=== PATIENT | female | born 1960 | race Asian ===

== ENCOUNTER 2017-03-12 15:21 | Outpatient (CLI) | payer MEDICARE, MEDICAID ==
[2017-03-12 19:32] LABS: BASOPHILS % (AUTO) 0.9 %; EOSINOPHILS # (AUTO) 0.1 10^3/uL (0.0-0.7); EOSINOPHILS % (AUTO) 1.2 %; HCT - HEMATOCRIT 43.6 % (37.0-47.0); HGB - HEMOGLOBIN 14.8 g/dL (12.0-16.0); LYMPHOCYTES # (AUTO) 1.4 10^3/uL (1.5-3.5); LYMPHOCYTES % (AUTO) 30.9 %; MEAN CORPUSCULAR HEMOGLOBIN 32.3 pg (27.0-31.0); MEAN CORPUSCULAR HGB CONC 33.9 g/dL (32.0-36.0); MEAN CORPUSCULAR VOLUME 95.3 fL (81.0-99.0); MEAN PLATELET VOLUME 8.2 fL (7.9-10.8); MONOCYTES # (AUTO) 0.2 10^3/uL (0.0-1.0); MONOCYTES % (AUTO) 4.8 %; NEUTROPHILS # (AUTO) 2.7 10^3/uL (1.5-6.6); NEUTROPHILS % (AUTO) 62.2 %; RED BLOOD COUNT 4.57 10^6/uL (4.20-5.40); RED CELL DISTRIBUTION WIDTH 12.8 % (12.0-15.0); UNCORRECTED WHITE BLOOD COUNT 4.4 x10^3/uL; WHITE BLOOD COUNT 4.4 x10^3/uL (4.8-10.8)
[2017-03-12 19:55] LABS: ALBUMIN/GLOBULIN RATIO 2.1 (1.0-2.2); BILIRUBIN,TOTAL 0.9 mg/dL (0.2-1.0); CALCIUM 9.6 mg/dL (8.5-10.3); CREATININE 0.6 mg/dL (0.4-1.0); POTASSIUM 3.8 mmol/L (3.5-5.0); TOTAL PROTEIN 7.4 g/dL (6.7-8.2)
== END 2017-03-12 15:22 | disposition home or self-care (01) ==
LOC: LAB.N 15:21
PROVIDERS: ATTEND Nurse Practitioner Gerontology
DX: I10 Essential (primary) hypertension (principal); E03.9 Hypothyroidism, unspecified
CPT/HCPCS: 36415; 80053; 84443; 85025

== ENCOUNTER 2017-03-16 16:58 | Outpatient (CLI) | payer MEDICARE, MEDICAID | END 2017-03-16 16:59 | disposition critical access hospital (66) | LOC: EMS 16:58 | PROVIDERS: ATTEND Surgery | DX: R73.09 Other abnormal glucose (principal); R53.1 Weakness; R53.83 Other fatigue | CPT/HCPCS: A0425; A0427 ==

== ENCOUNTER 2017-03-16 17:22 | Emergency (ER) | payer MEDICARE, MEDICAID ==
[2017-03-16] MEDS ORDERED: SODIUM CHLORIDE 0.9% 1,000 ML IV ONE (17:29)
[2017-03-16] MEDS ORDERED: metFORMIN 500 MG TABLET PO STA (17:29)
[2017-03-16] MEDS ORDERED: LEVOTHYROXINE 100 MCG TABLET PO STA (17:29)
[2017-03-16] MEDS ORDERED: INSULIN REGULAR HUMAN 100 UNIT/1 ML 10 ML MDV IVP STA (17:29)
--- NOTE | 2017-03-16 17:32 | ED Physician Documentation ---
History of Present Illness - Stated complaint Stated Complaint: SLURRED SPEECH - Chief complaint Chief Complaint: Neuro - History obtained from History obtained from: Patient - History of Present Illness Timing: Other (56-year-old woman with a history of pretty significant psychiatric issues has been medication noncompliant. She had pre-clinic labs done 4 days ago which were notable for a very high TSH and a blood sugar of 418. She was seen in the office today and there was a concern for slurred speech which neither the patient's nor the paramedics in route noted. She has had recent weight gain, but denies psychosis.) Review of Systems Constitutional: denies: Fever, Chills Cardiac: denies: Chest pain / pressure, Palpitations Respiratory: denies: Dyspnea, Cough GI: denies: Abdominal Pain, Nausea, Vomiting : reports: Frequency PD PAST MEDICAL HISTORY - Past Medical History Endocrine/Autoimmune: HyPERthyroidism, HyPOthyroidism Psych: Bipolar disorder - Past Surgical History Past Surgical History: Yes - Present Medications Home Medications: Ambulatory Orders Medication Instructions Recorded Confirmed Metformin HCl 500 mg PO BID #60 tablet 03/16/17 - Allergies Allergies/Adverse Reactions: Allergies Allergy/AdvReac Type Severity Reaction Status Date / Time No Known Drug Allergies Allergy Verified 03/16/17 17:29 - Social History Does the pt smoke?: Yes Smoking Status: Unknown if ever smoked Does the pt drink ETOH?: No Does the pt have substance abuse?: Yes - Immunizations Immunizations are current?: No - POLST Patient has POLST: No PD ED PE NORMAL - Vitals Vital signs reviewed: Yes - General General: Alert and oriented X 3, No acute distress - HEENT HEENT: PERRL, EOMI - Cardiac Cardiac: RRR, No murmur - Respiratory Respiratory: No respiratory distress, Clear bilaterally - Abdomen Abdomen: Non tender - Neuro Neuro: Alert and oriented X 3, supervisor marble 2-12 intact, No motor deficit, No sensory deficit, Normal speech (no slurring) - Psych Psych: Normal mood, Normal affect Results - Vitals Vitals: Vital Signs - 24 hr 03/16/17 03/16/17 17:25 19:23 Temperature 37.1 C 36.6 C Heart Rate 84 74 Respiratory 18 16 Rate Blood Pressure 183/95 H 134/90 H O2 Saturation 96 99 Oxygen O2 Source Room air PD MEDICAL DECISION MAKING - ED course Complexity details: reviewed old records (Clinic labs from a few days ago- no DKA) ED course: I suspect she had transient slurred speech due to hyperglycemia, there is no evidence of stroke or slurred speech at this juncture. She does have significant hypothyroidism and a new diagnosis of diabetes. She is administered IV fluids, metformin, and her home dose of levothyroxine. After some IV fluids and insulin and a first dose of metformin her blood sugar is 337 and she is discharged on metformin advised to take her Synthroid and discuss her medications ongoing with her physician. Departure - Departure Disposition: Home, Self Care Clinical Impression: New onset type 2 diabetes mellitus Hypothyroidism Qualifiers: Hypothyroidism type: unspecified Qualified Code(s): E03.9 - Hypothyroidism, unspecified Condition: Good Record reviewed to determine appropriate education?: Yes Instructions: ED Hypothyroidism, Diabetes Type 2 Oral Meds, Diabetes Type 2 Coping Prescriptions: Metformin HCl 500 mg PO BID #60 tablet Comments: There is no evidence of stroke, but it does seem that she likely have diabetes, I am starting you on an oral medication for this. Follow-up with your doctor in the next 2 days for blood sugar recheck. Also I advised that she take your other medications including and especially your thyroid medicine. Your blood pressure was elevated today on check into the emergency department. This does not mean that you have hypertension, it is a common phenomenon to come to the emergency department and have elevated blood pressure. I recommend that she see her primary care physician within the week to have it rechecked when you are feeling better. Discharge Date/Time: 03/16/17 19:31
[2017-03-16] MEDS ORDERED: INSULIN REGULAR HUMAN 100 UNIT/1 ML 10 ML MDV ONE (17:55)
[2017-03-16] MEDS ORDERED: metFORMIN 500 MG TABLET ONE (17:56)
[2017-03-16] MEDS ORDERED: LEVOTHYROXINE 100 MCG TABLET ONE (17:56)
[2017-03-16 19:24] VITALS: BP 134/90
== END 2017-03-16 19:31 | disposition home or self-care (01) ==
LOC: EDUNIT# → ED 17:22
DX: E11.65 Type 2 diabetes mellitus with hyperglycemia (principal); Z79.84 Long term (current) use of oral hypoglycemic drugs; E03.9 Hypothyroidism, unspecified; R03.0 Elevated blood-pressure reading, without diagnosis of hypertension; F31.9 Bipolar disorder, unspecified; Z91.14 Patient's other noncompliance with medication regimen
CPT/HCPCS: 99283; 99284; A9270; J1815

== ENCOUNTER 2017-05-01 15:40 | Outpatient (CLI) | payer MEDICARE, MEDICAID ==
[2017-05-01 20:08] LABS: THYROID STIMULATING HORMONE 0.17 uIU/mL (0.34-5.60)
== END 2017-05-01 15:41 | disposition home or self-care (01) ==
LOC: LAB.N 15:40
PROVIDERS: ATTEND Nurse Practitioner Gerontology
DX: E03.9 Hypothyroidism, unspecified (principal)
CPT/HCPCS: 36415; 84439; 84443

== ENCOUNTER 2017-06-25 09:02 | Outpatient (CLI) | payer MEDICAID, MEDICARE ==
[2017-06-25] MEDS ORDERED: GADOBUTROL 7.5 MMOL/7.5 ML VIAL ONE (09:57)
[2017-06-25 10:56] LABS: CREATININE 0.6 mg/dL (0.4-1.0)
[2017-06-25] MEDS ORDERED: GADOBUTROL 7.5 MMOL/7.5 ML VIAL IVP ONE (11:50)
--- NOTE | 2017-06-25 12:40 | MRI Preliminary Report ---
Exam: MRI ORBITS W/WO IMPRESSION: 1. Enlargement of the left inferior rectus muscle with diffuse signal abnormality and enhancement. Mi ld stranding is present in the surrounding orbital fat. 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 Lymphoma or other malignancy is less likely but cannot be excluded. 2. Mild asymmetric enlargement of left lacrimal gland relative to the right. Findings are indetermina te, but could also represent orbital pseudotumor. [facility] SITE ID: [id number]
--- NOTE | 2017-06-25 12:42 | MRI Report ---
EXAM: MRI BRAIN AND ORBITS WITHOUT AND WITH CONTRAST EXAM DATE: 06/25/2017 12:15 PM. CLINICAL HISTORY: 56-year-old woman with left eye double vision. Concern for cranial nerve palsy. COMPARISON: None. TECHNIQUE: Multiplanar, multisequence T1-weighted and fluid-sensitive MR sequences of the brain were performed. Sequences optimized for routine evaluation. Other: None. IV Contrast: 6.5 cc Gadavist. FINDINGS: Parenchyma: No evidence of acute infarct on diffusion weighted sequence. The parenchyma demonstrates [id number] burden of nonspecific flatter hyperintensities in the deep cerebral white matter, mo st consistent with sequelae of chronic small vessel ischemic disease and a common finding in this age group. No evidence of prior hemorrhage on susceptibility weighted sequence. No abnormal enhancement. Pituitary: Unremarkable. Ventricles and Extra-axial Spaces: Ventricles are symmetric and normal in size for age. Extra-axial s paces are unremarkable. No abnormal enhancement. Orbits, Optic nerves, and Cavernous Sinuses: Globes are intact and normal in shape. The optic nerves are symmetric and normal in caliber. No signal abnormality or abnormal enhancement. The left inferior rectus muscle is enlarged and demonstrates increased T2 signal and diffuse enhancement. There is mil d stranding in the surrounding left orbital fat. The remaining extraocular muscles are symmetric and normal in size. There is mild asymmetric enlargement of the left lacrimal gland relative to the right , indeterminate. Cavernous sinuses are symmetric and normal in size without evidence of mass lesion. Sinuses: Paranasal sinuses and mastoid air cells are clear. Major Vascular Flow Voids: Intact. Dural Venous Sinuses and Major Central Veins: Patent on post-contrast images. IMPRESSION: 1.Enlargement of the left inferior rectus muscle with diffuse signal abnormality and enhancement. Mil d stranding is present in the surrounding orbital fat. 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 Lymphoma or other malignancy is less likely but cannot be excluded. 2. Mild asymmetric enlargement of left lacrimal gland relative to the right. Findings are indetermina te, but could also represent orbital pseudotumor. [facility] Referring Provider Line: [phone] SITE ID: [id number]
== END 2017-06-25 09:03 | disposition home or self-care (01) ==
LOC: DI 09:02
PROVIDERS: ATTEND Ophthalmology
DX: R93.0 Abnormal findings on diagnostic imaging of skull and head, not elsewhere classified (principal); H57.00 Unspecified anomaly of pupillary function
CPT/HCPCS: 36415; 70543; 82565; A9585

== ENCOUNTER 2017-12-29 13:03 | Outpatient (CLI) | payer MEDICAID, MEDICARE | END 2017-12-29 13:04 | disposition critical access hospital (66) | LOC: EMS 13:03 | PROVIDERS: ATTEND Surgery | DX: R41.0 Disorientation, unspecified (principal); R46.89 Other symptoms and signs involving appearance and behavior | CPT/HCPCS: A0425; A0429 ==

== ENCOUNTER 2017-12-29 13:27 | Emergency (ER) | payer MEDICAID, MEDICARE ==
[2017-12-29 14:06] VITALS: BP 133/79
[2017-12-29] MEDS: OLANZapine ODT 5 MG TABLET TL ONE (14:59)
[2017-12-29 15:01] LABS: BASOPHILS % (AUTO) 0.5 %; EOSINOPHILS # (AUTO) 0.1 10^3/uL (0.0-0.7); EOSINOPHILS % (AUTO) 0.7 %; HGB - HEMOGLOBIN 13.2 g/dL (12.0-16.0); LYMPHOCYTES # (AUTO) 1.2 10^3/uL (1.5-3.5); LYMPHOCYTES % (AUTO) 15.9 %; MEAN CORPUSCULAR HEMOGLOBIN 31.1 pg (27.0-31.0); MEAN CORPUSCULAR HGB CONC 33.6 g/dL (32.0-36.0); MEAN CORPUSCULAR VOLUME 92.6 fL (81.0-99.0); MONOCYTES # (AUTO) 0.4 10^3/uL (0.0-1.0); MONOCYTES % (AUTO) 5.5 %; NEUTROPHILS # (AUTO) 5.8 10^3/uL (1.5-6.6); NEUTROPHILS % (AUTO) 77.4 %; PLT - PLATELET COUNT 297 10^3/uL (130-450); RED BLOOD COUNT 4.25 10^6/uL (4.20-5.40); RED CELL DISTRIBUTION WIDTH 13.9 % (12.0-15.0); WHITE BLOOD COUNT 7.5 x10^3/uL (4.8-10.8)
[2017-12-29 15:11] LABS: ALBUMIN 4.1 g/dL (3.2-5.5); ALBUMIN/GLOBULIN RATIO 1.8 (1.0-2.2); ALKALINE PHOSPHATASE 69 IU/L (42-121); ALT ALANINE AMINOTRANSFERASE 51 IU/L (10-60); AST ASPARTATE AMINOTRANSFERASE 41 IU/L (10-42); BILIRUBIN,TOTAL 1.2 mg/dL (0.2-1.0); BUN - BLOOD UREA NITROGEN 31 mg/dL (6-20); CARBON DIOXIDE - CO2 25 mmol/L (21-32); CHLORIDE 107 mmol/L (101-111); CREATININE 0.6 mg/dL (0.4-1.0); GFR - MDRD 104 (>89); GLUCOSE 190 mg/dL (70-100); LIPASE 25 U/L (22-51); SALICYLATE < 6.0 mg/dL; SODIUM 140 mmol/L (135-145); TOTAL PROTEIN 6.4 g/dL (6.7-8.2)
--- NOTE | 2017-12-29 15:24 | ED Physician Documentation ---
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 denies: Suicidal, Homicidal Endocrine: denies: Easy bruising / bleeding Immunocompromised: denies: Immunocompromised PD PAST MEDICAL HISTORY - Past Medical History Endocrine/Autoimmune: HyPERthyroidism, HyPOthyroidism Psych: Bipolar disorder - Past Surgical History Past Surgical History: Yes - Present Medications Home Medications: Ambulatory Orders Medication Instructions Recorded Confirmed Metformin HCl 500 mg PO BID #60 tablet 03/16/17 - Allergies Allergies/Adverse Reactions: Allergies Allergy/AdvReac Type Severity Reaction Status Date / Time No Known Drug Allergies Allergy Verified 12/29/17 13:43 - Social History Does the pt smoke?: Yes Smoking Status: Unknown if ever smoked Does the pt drink ETOH?: No Does the pt have substance abuse?: Yes - Immunizations Immunizations are current?: No - POLST Patient has POLST: No PD ED PE NORMAL - Vitals Vital signs reviewed: Yes - General General: Other (awake answers questions) - HEENT HEENT: Atraumatic, PERRL. No: EOMI (dyscongugate gaze L eye - pt states not new she has " a lazy eye ") - Neck Neck: Supple, no meningeal sign - Cardiac Cardiac: RRR - Respiratory Respiratory: No respiratory distress, Clear bilaterally - Derm Derm: Normal color - Neuro Neuro: Other (mildly confused) Eye Opening: Spontaneous Motor: Obeys Commands Verbal: Confused GCS Score: 14 - Psych Psych: Other (does seem psychotic and admit to hearing and seeing things) Results - Vitals Vitals: Oxygen O2 Source Room air - Labs Labs: Laboratory Tests 05/15/18 05/15/18 05/15/18 14:40 14:40 18:15 WBC 7.5 RBC 4.25 Hgb 13.2 Hct 39.3 MCV 92.6 MCH 31.1 H MCHC 33.6 RDW 13.9 Plt Count 297 MPV 7.0 L Neut # 5.8 Lymph # 1.2 L [place] # 0.4 Eos # 0.1 Baso # 0.0 Absolute Nucleated RBC 0.00 Nucleated RBC % 0.0 Sodium 140 Potassium 3.7 Chloride 107 Carbon Dioxide 25 Anion Gap 8.0 BUN 31 H Creatinine 0.6 Estimated GFR (MDRD) 104 Glucose 190 H Glycated Hemoglobin Estim Average Glucose Calcium 9.0 Total Bilirubin 1.2 H AST 41 ALT 51 Alkaline Phosphatase 69 Total Protein 6.4 L Albumin 4.1 Globulin 2.3 Albumin/Globulin Ratio 1.8 Lipase 25 TSH Free T4 Urine Color YELLOW Urine Clarity HAZY Urine pH 5.5 Ur Specific [place] >=1.030 H Urine Protein TRACE Urine Glucose (UA) 100 H Urine Ketones TRACE Urine Occult Blood SMALL H Urine Nitrite NEGATIVE Urine Bilirubin NEGATIVE Urine Urobilinogen 2 H Ur Leukocyte Esterase SMALL H Urine RBC 0-5 Urine WBC 6-10 H Ur Squamous Epith Cells MANY Squamous H Urine Bacteria Few Urine Mucus Few Strands Ur Microscopic Review INDICATED Urine Culture Comments NOT INDICATED Salicylates < 6.0 Urine Opiates Screen NEGATIVE Ur Oxycodone Screen NEGATIVE Urine Methadone Screen NEGATIVE Ur Propoxyphene Screen NEGATIVE Acetaminophen < 10 L Ur Barbiturates Screen NEGATIVE Ur Tricyclics Screen NEGATIVE Ur Phencyclidine Scrn NEGATIVE Ur Amphetamine Screen NEGATIVE U Methamphetamines Scrn NEGATIVE U Benzodiazepines Scrn NEGATIVE Urine Cocaine Screen NEGATIVE U Cannabinoids Screen POSITIVE H Ethyl Alcohol < 5.0 12/30/17 12/30/17 12/30/17 06:24 06:40 06:40 WBC RBC Hgb Hct MCV MCH MCHC RDW Plt Count MPV Neut # Lymph # [place] # Eos # Baso # Absolute Nucleated RBC Nucleated RBC % Sodium Potassium Chloride Carbon Dioxide Anion Gap BUN Creatinine Estimated GFR (MDRD) Glucose Glycated Hemoglobin 6.4 H Estim Average Glucose 137 H Calcium Total Bilirubin AST ALT Alkaline Phosphatase Total Protein Albumin Globulin Albumin/Globulin Ratio Lipase TSH 8.87 H Free T4 0.78 Urine Color Urine Clarity Urine pH Ur Specific [place] Urine Protein Urine Glucose (UA) Urine Ketones Urine Occult Blood Urine Nitrite Urine Bilirubin Urine Urobilinogen Ur Leukocyte Esterase Urine RBC Urine WBC Ur Squamous Epith Cells Urine Bacteria Urine Mucus Ur Microscopic Review Urine Culture Comments Salicylates Urine Opiates Screen Ur Oxycodone Screen Urine Methadone Screen Ur Propoxyphene Screen Acetaminophen Ur Barbiturates Screen Ur Tricyclics Screen Ur Phencyclidine Scrn Ur Amphetamine Screen U Methamphetamines Scrn U Benzodiazepines Scrn Urine Cocaine Screen U Cannabinoids Screen Ethyl Alcohol PD MEDICAL DECISION MAKING - ED course ED course: medically clear improved with zyprexa willing to go to inpt care SW gone for the day will board in ED overnight to see SW in the AM turned over to night EM at 9 PM and will return tomorrow AM to resume care reassumed care 7 AM pt had recurrent sx overnight, seen by DCR/CDM[facility], detained and placed, COBRAs completed by slot shift supervisor pt remained stable until transport arrived Departure - Departure Disposition: [facility] Hosp/Unit DC/Xfer Clinical Impression: Psychosis, Schizophrenia Condition: Stable Discharge Date/Time: 12/30/17 10:15
[2017-12-29 15:27] LABS: ACETAMINOPHEN < 10 ug/mL (10-30)
[2017-12-29 18:19] LABS: MUDS CUTOFF CONCENTRATIONS CUTOFF CONC BELOW:
[2017-12-29 18:22] LABS: BILIRUBIN,URINE NEGATIVE (NEGATIVE); GLUCOSE, URINE (UA) 100 mg/dL (NEGATIVE); KETONES,URINE (UA) TRACE mg/dL (NEGATIVE); LEUKOCYTE ESTERASE, URINE SMALL (NEGATIVE); NITRITE,URINE NEGATIVE (NEGATIVE); OCCULT BLOOD,URINE SMALL (NEGATIVE); PH,URINE 5.5 PH (5.0-7.5); PROTEIN,URINE TRACE mg/dL (NEGATIVE); UROBILINOGEN,URINE 2 E.U./dL (NORMAL)
[2017-12-29 18:26] LABS: CLARITY,URINE HAZY (CLEAR)
[2017-12-29 18:33] LABS: AMPHETAMINE SCREEN,URINE NEGATIVE (NEGATIVE); BACTERIA,URINE Few /HPF (None Seen); BENZODIAZEPINES SCREEN, URINE NEGATIVE (NEGATIVE); COCAINE SCREEN URINE NEGATIVE (NEGATIVE); METHADONE SCREEN, URINE NEGATIVE (NEGATIVE); METHAMPHETAMINES SCREEN, URINE NEGATIVE (NEGATIVE); MUCUS,URINE Few Strands; OPIATE SCREEN, URINE NEGATIVE (NEGATIVE); RBC,URINE 0-5 /HPF (0-5); SQUAMOUS EPITHELIAL CELL,UR MANY Squamous (<= Few); TRICYCLIC ANTIDEPRESSANT,URINE NEGATIVE (NEGATIVE)
[2017-12-29 18:34] LABS: OXYCODONE SCREEN, URINE NEGATIVE (NEGATIVE); PROPOXYPHENE SCREEN, URINE NEGATIVE (NEGATIVE)
[2017-12-30] MEDS: OLANZapine ODT 5 MG TABLET TL ONE (05:11)
[2017-12-30] MEDS: LORazepam 0.5 MG TABLET PO STA (05:14)
--- NOTE | 2017-12-30 06:51 | ED Physician Documentation ---
ED Addendum - Addendum Addendum: 12/30/17 06:47 Patient was signed over to me from Dr. Dumont. Patient was pending evaluation by social work and disposition. In the middle of the night patient was becoming more delusional, irrational and aggressive. DM was dispatched. After evaluation by dm patient was sedated with zyprexa and ativan. Case was discussed with Jose Elias Edwards. They wanted a tsh level and a hemoglobin A1C which was ordered. Patient was accepted. Arrangements were made for transfer. Departure - Departure Disposition: [facility]/Unit DC/Xfer Discharge Problem: Psychosis, Schizophrenia Condition: Stable
[2017-12-30 07:19] LABS: HB2 TOTAL 15.4 g/dL; HEMOGLOBIN A1C 0.71 g/dL; HEMOGLOBIN A1C % 6.4 % (4.6-6.2)
== END 2017-12-30 10:15 ==
LOC: EDUNIT# → ED 13:27
DX: F20.9 Schizophrenia, unspecified (principal); F29 Unspecified psychosis not due to a substance or known physiological condition; F31.9 Bipolar disorder, unspecified
CPT/HCPCS: 36415; 80053; 80306; 80307; 80320; 80329; 81001; 81003; 83036; 83690; 84439; 84443; 85025; 87086; 99284

== ENCOUNTER 2017-12-30 10:13 | Outpatient (CLI) | payer MEDICARE | END 2017-12-30 10:14 | LOC: EMS 10:13 | PROVIDERS: ATTEND Surgery | DX: F29 Unspecified psychosis not due to a substance or known physiological condition (principal) | CPT/HCPCS: A0425; A0428 ==

== ENCOUNTER 2018-03-16 14:23 | Outpatient (CLI) | payer MEDICARE ==
[2018-03-16 19:38] LABS: LITHIUM 0.39 mmol/L
== END 2018-03-16 14:24 | disposition home or self-care (01) ==
LOC: LAB.N 14:23
PROVIDERS: ATTEND Nurse Practitioner Gerontology
DX: E03.9 Hypothyroidism, unspecified (principal); Z79.899 Other long term (current) drug therapy
CPT/HCPCS: 36415; 80178; 84443